=== PATIENT | female | born 1970 | race Caucasian/White ===

== ENCOUNTER 2016-12-19 06:46 | Inpatient (IN) | payer OTHER ==
[2016-12-14 15:55] LABS: BASOPHILS 0.4 %; BASOPHILS ABSOLUTE 0.03 10/3/uL (0.0-0.16); EOSINOPHILS 3.4 %; EOSINOPHILS ABSOLUTE 0.27 10/3/uL (0.0-0.53); HEMOGLOBIN 13.9 g/dL (12.0-16.0); LYMPHOCYTES 39.8 %; LYMPHOCYTES ABSOLUTE 3.17 10/3/uL (0.67-4.30); MEAN CORPUS HGB CONC 34.1 g/dL (32.0-36.0); MEAN CORPUSCULAR HEMOGLOB 30.4 pg (26.0-34.0); MEAN CORPUSCULAR VOLUME 89.3 fL (80-100); MEAN PLATELET VOLUME 9.6 fL (9.2-13.0); MONOCYTES 5.8 %; MONOCYTES ABSOLUTE 0.46 10/3/uL (0.21-1.20); NEUTROPHILS 50.6 %; NEUTROPHILS ABSOLUTE 4.04 10/3/uL (2.02-8.40); PLATELET COUNT 375 10/3/uL (150-400); RBC DISTRIBUTION WIDTH 13.7 % (12.0-16.0); RED CELL COUNT 4.57 10/6/uL (4.0-5.6)
[2016-12-14 15:56] LABS: HEMATOCRIT 40.8 % (36.0-48.0); MANUAL DIFF NO %
[2016-12-14 16:03] LABS: PARTIAL THROMBO TIME 31.5 SEC (22.5-37.2); PROTIME (NOT ORD) 13.2 SEC (12.0-14.5)
[2016-12-14 16:16] LABS: ALBUMIN 3.8 G/DL (3.5-5.0); ALKALINE PHOSPHATASE 82 U/L (45-117); BUN (BLOOD UREA NITROGEN) 13 MG/DL (6-23); CHLORIDE, SERUM 100 MMOL/L (96-112); CO2 (CARBON DIOXIDE) 26 MMOL/L (24-34); CREATININE 0.95 MG/DL (0.55-1.02); GFR AFRICAN AMERICAN 83 ML/MIN (>=60); GFR NON AFRICAN AMERICAN 72 ML/MIN (>=60); GLUCOSE, SERUM 90 MG/DL (60-99); POTASSIUM, SERUM 4.3 MMOL/L (3.5-5.3); SGOT(AST) 24 U/L (5-40); SGPT(ALT) 64 U/L (5-65); SODIUM, SERUM 138 MMOL/L (135-148); TOTAL BILIRUBIN 0.4 MG/DL (0-1.2); TOTAL PROTEIN 7.8 G/DL (6.0-8.5)
[2016-12-14 16:32] LABS: CALCIUM, SERUM 9.7 MG/DL (8.5-10.4)
--- NOTE | ~2016-12-19 | OP ---
Record Of Operation [facility] [address] [place]. 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 POSTOPERATIVE DIAGNOSIS: High-grade gastric outlet obstruction secondary to pyloric stenosis secondary to chronic ulcer disease, refractory to nonoperative management. PROCEDURE: Partial distal gastrectomy with Billroth II gastrojejunostomy. SURGEON: Mitchel Velazquez M.D. ANESTHESIA: General with intubation. COMPLICATIONS: None. ESTIMATED BLOOD LOSS: 25 mL. SPECIMENS: Distal stomach. DRAINS: Genaro-Olivia in the abdominal cavity and [place] in the subcutaneous tissue. LAP AND SPONGE COUNT: Correct x3. BRIEF HISTORY: This 46-year-old female presented with a high-grade distal gastric outlet obstruction secondary to pyloric stenosis, secondary to chronic ulcer disease. The patient has failed to respond to medical management and repeated endoscopic dilatations. It was felt that a partial distal gastrectomy was indicated. This procedure, the risks, benefits, and alternatives, including but not limited to the risk for bleeding, infection, enterotomy, injury to any abdominal structure, postop small bowel obstruction, ileus, incisional hernia, dehiscence, anastomotic leak, resulting in peritonitis, sepsis, and , and requiring reoperation, duodenal stump leak resulting in peritonitis, sepsis, and , and resulting in reoperation, gastroparesis, gastric outlet obstruction, recurrent ulcer disease, dumping syndrome, common bile duct injury, and unforeseen complications including deep venous thrombosis, pulmonary embolus, myocardial infarction, stroke, pneumonia, and , were fully and completely explained to the patient at length prior to surgery. The fact that this was a major operation with risk for major morbidity and mortality has been explained as well as expected length of recovery. The patient had questions, which were answered. She fully understood the risks and agreed to surgery as planned. DESCRIPTION OF PROCEDURE: After being properly identified and after discussing risks of surgery with her again in the preoperative area and with her family, the patient was taken to the operating room and placed in the supine position on the operating room table. General anesthesia was administered. She was intubated without difficulty. A Alford catheter and NG tube were inserted. The abdomen was prepped and draped sterilely in the Record Of Operation [address] [address] NAME: MIKEY WINTERS : 70 STATUS : ADM IN PAT#: [id number] AGE: 46 ADM/REG DATE : 12/19/16 MR#: [id number] REPORT SERV DATE: 12/19/16 DICTATED BY: MITCHEL VELAZQUEZ III DATE: 12/19/16 REPORT STATUS : Draft TRANSCRIBED BY: YANETH DATE: 12/19/16 usual fashion. After an appropriate "time-out" per [employer]CA[employer] standards, a midline incision was made from just beneath the xiphoid process to just above the umbilicus. The incision was continued through the subcutaneous tissue. Hemostasis was controlled with electrocautery. The incision was continued through the fascia. The abdominal cavity was entered. The abdomen was inspected. There was no evidence for carcinomatosis or malignancy. We identified the stomach. There was some thickening in the pylorus. We selected a point in the mid body of the stomach near the junction of the antrum and body for division of the stomach. A window was made in the gastrocolic ligament at this location. The gastrocolic ligament was then from the stomach from here distally, using the Harmonic scalpel. The similar area along the lesser curve of the stomach was similarly exposed by dividing the lesser omentum. We then divided the stomach approximately at the junction of the antrum and the body of the stomach using a ADDI stapler. Distally, we continued our dissection beyond the pylorus. A TA 40 stapler was then used to divide the duodenum just beyond the pylorus. The antrum was thus removed and sent for permanent pathology. The duodenal stump was then oversewn with interrupted 3-0 silk sutures. This resulted in good inversion of the stump. We then performed an end gastric to side jejunal anastomosis in a Billroth II fashion. We identified the proximal jejunum just beyond the ligament of Treitz. This jejunum was brought through a window made in the avascular portion of the mesentery of the transverse colon. The gastrojejunostomy was then performed two layers, using interrupted 3-0 silk sutures on the outer posterior layer, a running 3-0 chromic suture on the inner layer, and interrupted 3-0 silk sutures on the outer anterior layer. The length anastomosis was some 4 cm in size. The NG tube was positioned just proximal to the anastomosis. Upon completion of this, anastomosis was widely patent to palpation. It was not twisted or kinked in any way and was not under any tension. The lesser curve of the stomach which had been divided was oversewn with interrupted 3-0 silk sutures. The anastomosis was secured to the mesentery of the transverse colon using interrupted 3-0 silk sutures. Great care was taken to make certain that the efferent and afferent limbs were normal in position, and were not twisted or kinked in any way and not obstructed. The abdominal cavity was then irrigated copiously with saline. Evicel fibrin glue was placed over the duodenal stump. A Genaro-Olivia drain was brought through a separate stab wound and placed near the duodenal stump. Hemostasis was assured. The fascia was then closed with running looped #1 PDS suture. The subcutaneous tissue was closed with a running 3-0 chromic suture over a [place] drain which were brought through the inferior aspect of the incision. The skin was closed with running subcuticular 4-0 Monocryl stitch. Dressings were applied. Anesthesia was reversed, and the patient was taken to the recovery room in stable condition. She tolerated the procedure well. Her family was informed results of surgery. The patient will remain in the hospital for postoperative care. RUBI/YANETH Mitchel Velazquez III, M.D. Record Of Operation [address] [address] NAME: MIKEY WINTERS : 70 STATUS : ADM IN [facility]#: [id number] AGE: 46 ADM/REG DATE : 12/19/16 MR#: [id number] REPORT SERV DATE: 12/19/16 DICTATED BY: MITCHEL VELAZQUEZ III DATE: 12/19/16 REPORT STATUS : Draft TRANSCRIBED BY: YANETH DATE: 12/19/16 / [id number] CC: Mitchel Velazquez III, M.D.
--- NOTE | ~2016-12-19 | DS ---
Discharge Summary [facility] [address] [place]. [address] NAME: MIKEY WINTERS : 70 STATUS : DIS IN PAT#: [id number] AGE: 46 ADM/REG DATE : 12/19/16 MR#: [id number] REPORT SERV DATE: 12/31/16 DICTATED BY: MITCHEL VELAZQUEZ III DATE: 12/30/16 REPORT STATUS : Draft TRANSCRIBED BY: YANETH DATE: 12/30/16 Data Collection from hospitalization DISCHARGE DIAGNOSES: 1. High-grade gastric outlet obstruction secondary to pyloric stenosis, secondary to chronic ulcer disease, refractory to nonoperative management. 2. Hypertension. 3. Bipolar. 4. Depression and anxiety. 5. Cardiac murmur. 6. Obesity. CONSULTATIONS: None. PROCEDURES PERFORMED: Partial distal gastrectomy with Billroth 2 gastrojejunostomy on 12/19/2016. PATHOLOGY: Partial gastrectomy - gastric mucosa with chronic gastritis ranging up to moderate in degree, no intestinal metaplasia or dysplasia. IHC negative for H. pylori. Benign gastric and small bowel margins with mild chronic duodenitis. MEDICATIONS: Tylenol 1000 mg every six hours as needed, Adderall 10 mg twice a day, Ziac one tablet every morning, Wellbutrin XL 300 mg twice a day, Lexapro 20 mg every morning, Prilosec 40 mg every morning, Zofran 4 mg every eight hours as needed, Percocet 7.5/325 one tablet times a day as needed, Pravachol 40 mg every morning, and Imitrex 25 mg as needed. CONDITION AT DISCHARGE: Stable. DISPOSITION: The patient was discharged home on a full liquid diet with activities as instructed. Her diet would be advanced over the next two to three days. She would follow up with me two weeks following discharge. HOSPITAL COURSE: This is a 46-year-old female who presented with a high-grade distal gastric outlet obstruction, secondary to pyloric stenosis, secondary to chronic ulcer disease. The patient has failed to respond to medical management and repeated endoscopic dilatation. It was felt that partial distal gastrectomy was indicated. Treatment options were discussed and it was elected to proceed with surgical intervention. She was admitted to the hospital for further evaluation and treatment. Upon admission, she was taken to the operating room where she underwent the above-mentioned procedure. She tolerated this well, and there were no complications. On postop day #1, she had no new complaints. She was alert and comfortable. She was being held n.p.o. with an NG tube in place. On 12/21/2016, she continued to do well. She had good pain control. She was evaluated by Physical Therapy. Over the next couple of days, Alford catheter was removed. The epidural catheter was removed and the tip was intact. Discharge planning was performed. The NG tube was removed. Clear liquids were started. On 12/24/2016, discharge instructions were given. Due to her improved and stable condition, she was discharged home with the above-stated instructions. Discharge Summary [facility] [id number] [place]. [address] NAME: MIKEY WINTERS : 70 STATUS : DIS IN PAT#: [id number] AGE: 46 ADM/REG DATE : 12/19/16 MR#: [id number] REPORT SERV DATE: 12/31/16 DICTATED BY: MITCHEL VELAZQUEZ III DATE: 12/30/16 REPORT STATUS : Draft TRANSCRIBED BY: YANETH DATE: 12/30/16 Information collected by: Alcira Velasquez I submit the above information as my discharge summary. CARLIN/YANETH Mitchel Velazquez III, M.D. / [id number] CC: Jennifer Stewart III, M.D.
--- NOTE | ~2016-12-19 | PREOPHP ---
PreOp History and Physical [address] [place]. [address] NAME: MIKEY WINTERS : 70 STATUS : PRE IN PAT#: [id number] AGE: 46 ADM/REG DATE : MR#: [id number] REPORT SERV DATE: 12/19/16 DICTATED BY: MITCHEL VELAZQUEZ III DATE: 12/08/16 REPORT STATUS : Draft TRANSCRIBED BY: MODL DATE: 12/08/16 HISTORY OF PRESENT ILLNESS: This 46-year-old female comes to the operating room for partial gastrectomy for severe pyloric stenosis associated with gastric outlet obstruction. The patient has a 2-year history of pyloric stenosis. This has been associated with nausea, vomiting, and food intolerance. The patient has undergone four separate endoscopies with dilatation of her pyloric stenosis. The symptoms have become progressively worse and refractory to endoscopic management. She now has evidence for a near-complete high-grade gastric outlet obstruction associated with nausea, vomiting, and food intolerance. She has severe pain after eating. She is felt to fail nonoperative management and comes now for a partial gastrectomy. PAST HISTORY: 1. Hypertension. 2. Obesity. 3. Cardiac murmur. 4. Bipolar, depression, and anxiety. MEDICATIONS: Amphetamine, bisoprolol, bupropion, omeprazole, citalopram, fluticasone, Zofran, pravastatin, sumatriptan, and zaleplon. ALLERGIES: NONE. PAST SURGICAL HISTORY: Includes tubal ligation and back surgery. FAMILY HISTORY: Positive for hypertension and cardiac disease. SOCIAL HISTORY: No history of tobacco or alcohol use. REVIEW OF SYSTEMS: The patient complains of fever, fatigue, weight loss, nausea, and vomiting. PHYSICAL EXAMINATION: GENERAL: Obese female, in no acute distress. She is alert and oriented x3. VITAL SIGNS: Blood pressure 151/87, temperature 97.7, pulse 80. HEENT: Unremarkable. NEURO: Cranial nerves II through XII are normal. LUNGS: Clear. CARDIAC: Exam normal. ABDOMEN: Soft, nontender, with no masses. EXTREMITIES: Normal. LABORATORY: Panendoscopy shows a benign-appearing intrinsic moderate stenosis at the pylorus. This has been present on several previous endoscopies. It should be noted, the patient has been hospitalized on three separate occasions with gastric outlet obstruction requiring placement of an NG tube. PreOp History and Physical [address] [address] NAME: MIKEY WINTERS : 70 STATUS : PRE IN PAT#: [id number] AGE: 46 ADM/REG DATE : MR#: [id number] REPORT SERV DATE: 12/19/16 DICTATED BY: MITCHEL VELAZQUEZ III DATE: 12/08/16 REPORT STATUS : Draft TRANSCRIBED BY: MODL DATE: 12/08/16 ASSESSMENT: 1. A 46-year-old female with chronic gastric outlet obstruction secondary to pyloric stenosis, but the patient's symptoms are becoming refractory to endoscopic dilatation. 2. Obesity. 3. Hypertension. 4. History of bipolar, depression, and anxiety. PLAN: The patient comes to the operating room now for partial gastrectomy. This procedure, the risks, benefits, and alternatives, including not limited to the risk for bleeding; infection; enterotomy; injury to abdominal structure; postop small bowel obstruction; ileus; incisional hernia; dehiscence; anastomotic leak resulting in peritonitis, sepsis, and ; duodenal stump leak resulting in peritonitis, sepsis, and ; gastroparesis; recurrent gastric outlet obstruction; marginal ulcer disease; and unforeseen complications including deep venous thrombosis, pulmonary embolus, myocardial infarction, stroke, pneumonia, and , have been fully explained to the patient at length prior to surgery. The fact that this is a major operation with risks for major morbidity and mortality have been explained. The fact that she may have severe gastroparesis after surgery requiring chronic enteral nutrition through her J tube has been explained. The patient had questions which have been answered. She fully and completely understands the risks and agrees to surgery as planned. RUBI/YANETH Mitchel Velazquez III, M.D. / [id number]
[~2016-12-19 06:46] MED LIST: ACET500CAP PO; ADDER10 PO; BACDS PO; CYMBALTA60 PO; IMITREX25 PO; IMOD PO; LEXAPRO20 PO; PRAVAC PO; PRAVACHOL40 MG PO; PRILOSEC OTC20 MG PO; PRILOSEC40 MG PO; REG PO; T PO; VANC125UDL PO; VOLT75 PO; WELLBUTRIN PO; WELLSR150 PO; WELLXL300 PO; ZIAC10 PO; ZOFRAN ODT4 MG PO
[2016-12-20 06:42] LABS: BASOPHILS 0.1 %; BASOPHILS ABSOLUTE 0.01 10/3/uL (0.0-0.16); EOSINOPHILS 0.1 %; EOSINOPHILS ABSOLUTE 0.01 10/3/uL (0.0-0.53); HEMATOCRIT 34.7 % (36.0-48.0); HEMOGLOBIN 11.5 g/dL (12.0-16.0); IMMATURE GRANULOCYTES 0.2 %; IMMATURE GRANULOCYTES ABSOLUTE 0.02 10/3/uL (0.0-0.11); LYMPHOCYTES 19.1 %; LYMPHOCYTES ABSOLUTE 1.89 10/3/uL (0.67-4.30); MANUAL DIFF NO %; MEAN CORPUS HGB CONC 33.1 g/dL (32.0-36.0); MEAN CORPUSCULAR HEMOGLOB 30.4 pg (26.0-34.0); MEAN CORPUSCULAR VOLUME 91.8 fL (80-100); MEAN PLATELET VOLUME 9.3 fL (9.2-13.0); MONOCYTES ABSOLUTE 0.59 10/3/uL (0.21-1.20); NEUTROPHILS 74.5 %; NEUTROPHILS ABSOLUTE 7.39 10/3/uL (2.02-8.40); PLATELET COUNT 272 10/3/uL (150-400); RBC DISTRIBUTION WIDTH 13.6 % (12.0-16.0); RED CELL COUNT 3.78 10/6/uL (4.0-5.6); WHITE BLOOD CELLS 9.9 10/3/uL (4.5-10.5)
[2016-12-20 06:53] LABS: BUN (BLOOD UREA NITROGEN) 8 MG/DL (6-23); CALCIUM, SERUM 8.2 MG/DL (8.5-10.4); CHLORIDE, SERUM 103 MMOL/L (96-112); CO2 (CARBON DIOXIDE) 27 MMOL/L (24-34); CREATININE 0.79 MG/DL (0.55-1.02); GFR AFRICAN AMERICAN 104 ML/MIN (>=60); GFR NON AFRICAN AMERICAN 90 ML/MIN (>=60); GLUCOSE, SERUM 128 MG/DL (60-99); SODIUM, SERUM 138 MMOL/L (135-148)
[2016-12-21 06:04] LABS: BASOPHILS 0.3 %; BASOPHILS ABSOLUTE 0.02 10/3/uL (0.0-0.16); EOSINOPHILS 0.6 %; EOSINOPHILS ABSOLUTE 0.05 10/3/uL (0.0-0.53); HEMATOCRIT 33.6 % (36.0-48.0); IMMATURE GRANULOCYTES 0.3 %; IMMATURE GRANULOCYTES ABSOLUTE 0.02 10/3/uL (0.0-0.11); LYMPHOCYTES 25.6 %; LYMPHOCYTES ABSOLUTE 2.02 10/3/uL (0.67-4.30); MANUAL DIFF NO %; MEAN CORPUS HGB CONC 32.7 g/dL (32.0-36.0); MEAN CORPUSCULAR HEMOGLOB 30.4 pg (26.0-34.0); MEAN CORPUSCULAR VOLUME 92.8 fL (80-100); MEAN PLATELET VOLUME 9.5 fL (9.2-13.0); MONOCYTES ABSOLUTE 0.55 10/3/uL (0.21-1.20); NEUTROPHILS 66.2 %; NEUTROPHILS ABSOLUTE 5.24 10/3/uL (2.02-8.40); PLATELET COUNT 248 10/3/uL (150-400); RBC DISTRIBUTION WIDTH 13.7 % (12.0-16.0); RED CELL COUNT 3.62 10/6/uL (4.0-5.6); WHITE BLOOD CELLS 7.9 10/3/uL (4.5-10.5)
[2016-12-21 06:20] LABS: BUN (BLOOD UREA NITROGEN) 7 MG/DL (6-23); CALCIUM, SERUM 8.1 MG/DL (8.5-10.4); CHLORIDE, SERUM 103 MMOL/L (96-112); CO2 (CARBON DIOXIDE) 27 MMOL/L (24-34); CREATININE 0.73 MG/DL (0.55-1.02); GFR AFRICAN AMERICAN 114 ML/MIN (>=60); GFR NON AFRICAN AMERICAN 99 ML/MIN (>=60); GLUCOSE, SERUM 119 MG/DL (60-99); POTASSIUM, SERUM 3.7 MMOL/L (3.5-5.3); SODIUM, SERUM 137 MMOL/L (135-148)
[2016-12-22 06:19] LABS: BASOPHILS 0.1 %; BASOPHILS ABSOLUTE 0.01 10/3/uL (0.0-0.16); EOSINOPHILS 2.1 %; EOSINOPHILS ABSOLUTE 0.16 10/3/uL (0.0-0.53); HEMATOCRIT 33.6 % (36.0-48.0); HEMOGLOBIN 11.3 g/dL (12.0-16.0); IMMATURE GRANULOCYTES 0.3 %; IMMATURE GRANULOCYTES ABSOLUTE 0.02 10/3/uL (0.0-0.11); LYMPHOCYTES ABSOLUTE 1.83 10/3/uL (0.67-4.30); MEAN CORPUS HGB CONC 33.6 g/dL (32.0-36.0); MEAN CORPUSCULAR HEMOGLOB 29.9 pg (26.0-34.0); MEAN PLATELET VOLUME 9.5 fL (9.2-13.0); MONOCYTES 7.4 %; MONOCYTES ABSOLUTE 0.56 10/3/uL (0.21-1.20); NEUTROPHILS 66.1 %; NEUTROPHILS ABSOLUTE 5.03 10/3/uL (2.02-8.40); PLATELET COUNT 280 10/3/uL (150-400); RBC DISTRIBUTION WIDTH 13.6 % (12.0-16.0); RED CELL COUNT 3.78 10/6/uL (4.0-5.6); WHITE BLOOD CELLS 7.6 10/3/uL (4.5-10.5)
[2016-12-22 06:23] LABS: BUN (BLOOD UREA NITROGEN) 4 MG/DL (6-23); CALCIUM, SERUM 8.3 MG/DL (8.5-10.4); CHLORIDE, SERUM 103 MMOL/L (96-112); CO2 (CARBON DIOXIDE) 27 MMOL/L (24-34); CREATININE 0.68 MG/DL (0.55-1.02); GFR AFRICAN AMERICAN 122 ML/MIN (>=60); GFR NON AFRICAN AMERICAN 105 ML/MIN (>=60); GLUCOSE, SERUM 125 MG/DL (60-99); MANUAL DIFF NO %; MEAN CORPUSCULAR VOLUME 88.9 fL (80-100); POTASSIUM, SERUM 3.7 MMOL/L (3.5-5.3); SODIUM, SERUM 138 MMOL/L (135-148)
[2016-12-23 06:32] LABS: BASOPHILS 0.1 %; BASOPHILS ABSOLUTE 0.01 10/3/uL (0.0-0.16); EOSINOPHILS ABSOLUTE 0.29 10/3/uL (0.0-0.53); HEMOGLOBIN 11.7 g/dL (12.0-16.0); IMMATURE GRANULOCYTES 0.1 %; IMMATURE GRANULOCYTES ABSOLUTE 0.01 10/3/uL (0.0-0.11); LYMPHOCYTES 23.4 %; MEAN CORPUS HGB CONC 34.4 g/dL (32.0-36.0); MEAN CORPUSCULAR HEMOGLOB 31.5 pg (26.0-34.0); MEAN CORPUSCULAR VOLUME 91.4 fL (80-100); MEAN PLATELET VOLUME 9.1 fL (9.2-13.0); MONOCYTES ABSOLUTE 0.44 10/3/uL (0.21-1.20); NEUTROPHILS 66.4 %; NEUTROPHILS ABSOLUTE 4.83 10/3/uL (2.02-8.40); PLATELET COUNT 302 10/3/uL (150-400); RBC DISTRIBUTION WIDTH 13.4 % (12.0-16.0); RED CELL COUNT 3.72 10/6/uL (4.0-5.6); WHITE BLOOD CELLS 7.3 10/3/uL (4.5-10.5)
[2016-12-23 06:33] LABS: MANUAL DIFF NO %
[2016-12-23 06:48] LABS: BUN (BLOOD UREA NITROGEN) 4 MG/DL (6-23); CALCIUM, SERUM 8.8 MG/DL (8.5-10.4); CHLORIDE, SERUM 103 MMOL/L (96-112); CO2 (CARBON DIOXIDE) 25 MMOL/L (24-34); CREATININE 0.63 MG/DL (0.55-1.02); GFR AFRICAN AMERICAN 125 ML/MIN (>=60); GFR NON AFRICAN AMERICAN 108 ML/MIN (>=60); GLUCOSE, SERUM 119 MG/DL (60-99); POTASSIUM, SERUM 3.9 MMOL/L (3.5-5.3); SODIUM, SERUM 137 MMOL/L (135-148)
[2016-12-24] MEDS ORDERED: PERCOCET 7.5/321 TAB PO (11:25)
== END 2016-12-24 13:01 | disposition home or self-care (01) | DRG 328 ==
LOC: SDC/OF 06:46 → 5SO 16:13
PROVIDERS: Surgery
PROC: 0DT70ZZ Resection of Stomach, Pylorus, Open Approach (ICD-10-PCS; 2016-12-19)
PROC: 0D160ZA Bypass Stomach to Jejunum, Open Approach (ICD-10-PCS; 2016-12-19)
PROC: 0DB60ZZ Excision of Stomach, Open Approach (ICD-10-PCS; principal; 2016-12-19 09:15)
DX: K31.1 Adult hypertrophic pyloric stenosis (principal); E66.9 Obesity, unspecified; I10 Essential (primary) hypertension; F31.9 Bipolar disorder, unspecified; Z68.36 Body mass index [BMI] 36.0-36.9, adult; F41.9 Anxiety disorder, unspecified; Z79.899 Other long term (current) drug therapy; Z82.49 Family history of ischemic heart disease and other diseases of the circulatory system
CPT/HCPCS: 36415; 71020; 74000; 80048; 80053; 84703; 85025; 85610; 85730; 86850; 86900; 86901; 88307; 88342; 93005; 97161-GP; A9270-GY; C9113; J0690; J2250; J2270; J2405; J2710; J2765; J3010